=== PATIENT | male | born 2000 | race Caucasian/White ===

== ENCOUNTER 2023-10-17 22:47 | Emergency (ER) | payer OTHER ==
[2023-10-17 23:53] VITALS: O2SAT 100
--- NOTE | 2023-10-18 00:32 | XRAY Report ---
PROCEDURE: Ribs 2V RT INDICATIONS: Basketball injury/elbowed on R lat rib pain. TECHNIQUE: 2 views of the right ribs were acquired. COMPARISON: None. FINDINGS: Surgical changes and devices: None. Bones and chest wall: No acute displaced rib fracture. No suspicious bony lesions. Overlying soft tissues appear unremarkable. Lungs and pleura: The visualized lung appears clear. No pleural effusions or pneumothorax are visib le. IMPRESSION: No acute displaced fracture or pneumothorax. Reviewed by: Jluis Canales MD on 10/18/2023 12:31 AM PDT Approved by: Jluis Canales MD on 10/18/2023 12:31 AM PDT Station ID: [id number]
--- NOTE | 2023-10-18 01:29 | ED Physician Documentation ---
History of Present Illness - Stated complaint Stated Complaint: R SIDE RIB PX - Chief complaint Chief Complaint: Trauma Ch/Bk - History obtained from History obtained from: Patient - Additonal information Additional information: 23yM Previously healthy presents for evaluation of right lower rib cage anterior pain after being elbowed in the ribs playing basketball earlier. Pain is mild but patient states that he was told by nurse advice line that he needs to come in. PD PAST MEDICAL HISTORY - Past Medical History Past Medical History: No - Past Surgical History Past Surgical History: No - Present Medications Home Medications: Ambulatory Orders Medication Instructions Recorded Confirmed No Known Home Medications 10/17/23 10/17/23 - Allergies Allergies/Adverse Reactions: Allergies Allergy/AdvReac Type Severity Reaction Status Date / Time No Known Drug Allergies Allergy Verified 10/17/23 23:38 - Social History Does the pt smoke?: No Smoking Status: Never smoker Does the pt drink ETOH?: Yes ETOH Use: Beer - Immunizations Immunizations are current?: Yes - POLST Patient has POLST: No PD ED PE NORMAL - Vitals Vital signs reviewed: Yes - General General: Alert and oriented X 3, No acute distress, Well developed/nourished - HEENT HEENT: Atraumatic, PERRL, EOMI - Respiratory Respiratory: Other (R lower rib mild discomfort to palpation without palpable deformity or crepitus) Results - Vitals Vitals: Vital Signs - 24 hr 10/17/23 23:34 Temperature 3.1 C L Heart Rate 84 Respiratory 16 Rate Blood Pressure 132/79 H O2 Saturation 100 Oxygen O2 Source Room air PD Medical Decision Making - ED course ED course: 23-year-old man presented for evaluation for possible right lower anterior rib fracture. Chest x-ray looks benign and his exam is completely normal. Symptomatic care discussed. Return precautions given. Departure - Departure Disposition: 01 Home, Self Care Clinical Impression: Contusion of chest wall Condition: Good Instructions: ED Contusion Chest Wall Comments: You were seen in the emergency department for evaluation of rib pain. Your chest xray did not show a broken bone. Please follow-up with your primary care provider and return to the emergency department if you have any new or worsening symptoms or other concerns.
[2023-10-18 01:38] VITALS: BP 125/73
== END 2023-10-18 01:37 | disposition home or self-care (01) ==
LOC: ED 22:47
DX: S20.211A Contusion of right front wall of thorax, initial encounter (principal); W50.0XXA Accidental hit or strike by another person, initial encounter; Y93.67 Activity, basketball
CPT/HCPCS: 99283